=== PATIENT | female | born 1995 | race Caucasian/White ===

== ENCOUNTER 2016-10-05 09:24 | Emergency (ER) | payer OTHER ==
[~2016-10-05 09:24] MED LIST: CONCCAP2; PREN1CHW7 PO
--- NOTE | 2016-10-05 10:07 | PD ---
HPI Chief Complaint lower left abdominal pain Date Seen: Oct 05, 2016 Time Seen: 09:51 (Fidel Ireland MD R1) Travel History International Travel<30 Days: No Contact w/Intl Traveler<30Days: No (Fidel Ireland MD R1) History of Present Illness HPI 21 y/o female at 21/6 weeks presents for left lower abdominal pain. States it has been going on for the last 5 days or so. States it is in the LLQ area. Off and on pain. Worsened by walking. Relieved by laying down. Rates it as 5/10. States it started after her OB pushed on her abdomen at the last appointment. [facility] with [facility]. Denies any vaginal bleeding, loss of fluids, contractions. Endorses movement. No problems during this . Otherwise, doing well, no complaints. Denies any chest pain, SOB, dysuria, leg pain. Para: 0 : 1 (Fidel Ireland MD R1) History Past Medical History Medical History: Denies Significant Hx (Fidel Ireland MD R1) Obstetric History Obstetric History (Fidel Ireland MD R1) Past Surgical History Surgical History: No Previous Surgery (Fidel Ireland MD R1) Family History Family History: Negative (Fidel Ireland MD) Social History Alcohol Use: No Tobacco Use: No Substance Abuse: No (Fidel Ireland MD R1) Allergies-Medications (Allergen,Severity, Reaction): Coded Allergies: No Known Allergies (Verified , 10/05/16) Home Meds Active Scripts Nitrofurantoin Monohydrate Macrocrystals (Macrobid)100 Mg [id number] Mg PO BID #14 CAP Ref 0 Prov:Fidel Ireland MD R1 10/05/16 Vit W/ Ferric Phospha (Vitafol Gummies 3.33-0.333-34.8 mg)1 Chw Chw1 Tab PO DAILY #30 BOTTLE Ref 11 Prov:Kristen Jansen 08/01/16 Reported Medications Vit W/ Fe Fum-Iron Po (Concept Dha 53.5-38-1 mg)1 Cap Cap 08/01/16 Review of Systems General / Constitutional: Weight Gain, No: Fever Eyes: No: Blurred Vision HENT: No: Headaches Cardiovascular: No: Irregular Rhythm, Chest Pain or Discomfort, Palpitations Respiratory: No: Cough, Short of Breath Gastrointestinal: Abdominal Pain, No: Nausea, Vomiting, Diarrhea, Constipation Genitourinary: No: Urgency, Frequency, Dysuria Musculoskeletal: No: Limited ROM, Weakness Skin: No Rash, No Itching Neurologic: No: Weakness, Dizziness Psychiatric: No: Anxiety, Depression (Fidel Ireland MD R1) Physical Exam Narrative GENERAL: Well-nourished, well-developed patient. SKIN: Warm and dry. HEAD: Normocephalic and atraumatic. EYES: No scleral icterus. No injection or drainage. ENT: No nasal drainage noted. Mucous membranes pink. Airway patent. NECK: Supple, trachea midline. No JVD. CARDIOVASCULAR: Regular rate and rhythm without murmurs, gallops, or rubs. RESPIRATORY: Breath sounds equal bilaterally. No accessory muscle use. ABDOMEN/GI: Abdomen soft, non-tender, bowel sounds present, no rebound, no guarding Gravid to 21 weeks size FHT's: Category: 1 Baseline: 145 Reactive: yes Variability: moderate Decels: none EXTREMITIES: No cyanosis or edema. BACK: Nontender without obvious deformity. No CVA tenderness. NEUROLOGICAL: Awake and alert. Motor and sensory grossly within normal limits. Five out of 5 muscle strength in all muscle groups. Normal speech. (Fidel Ireland MD R1) Data Data Vital Signs Reviewed: Yes Orders Vital Signs (Adult) .ON ADMISSION (10/05/16 09:49) ^ Labor Status (10/05/16 09:49) Urinalysis - C+S If Indicated (10/05/16 09:49) ^ Hydration (10/05/16 09:49) (Fidel Ireland MD R1) MDM Medical Record Reviewed: Yes Interpretation(s) 21 y/o female at 21/6 weeks present with LLQ pain. Physical exam reassuring. Category 1 FHT. No contractions. Vitals stable. Plan -Monitor FHT -Hydration -UA -Monitor vitals Narrative Course / MDM FHT reassuring, no contractions UA significant for large leukocyte esterase, negative nitrites, rare bacteria, 2 WBC -Will treat for UTI with Macrobid for 7 days -Discharge home in stable condition, pain most likely related to round ligament ; Discussed returning to ED if worsening symptoms, vaginal bleeding, or fever/ chills, worsening dysuria -Follow-up with OB (Fidel Ireland MD R1) Attending Attestation 21 weeks with round ligament pain. UA is equivocal and Rx sent for possible UTI. FHR+ No UC patient doing well, agrees with plan of care. (Opal Bates MD) Diagnosis Diagnosis: Primary Impression: Round ligament pain Additional Impressions: UTI (urinary tract infection) Qualified Code: N30.00 - Acute cystitis without hematuria 21 weeks gestation of Disposition: DISCHARGE HOME Condition: Stable Scripts Nitrofurantoin Monohydrate Macrocrystals (Macrobid)100 Mg [id number] Mg PO BID #14 CAP Ref 0 Prov:Fidel Ireland MD R1 10/05/16 Patient Instructions: General Instructions, Abdominal Pain in (ED), Urinary Tract Infection in (ED) Fidel Ireland MD R1 Oct 05, 2016 10:07 Opal Bates MD Oct 05, 2016 11:22
[2016-10-05 10:56] LABS: BACTERIA, URINE RARE /hpf; BLOOD, URINE NEG (NEG); COMMENT (UR) CULT NOT INDICATED; CULTURE IF INDICATED CULT NOT INDICATED; GLUCOSE,URINE NEG (NEG); KETONE, URINE NEG (NEG); MUCUS URINE FEW /lpf (OCC); NITRITE,URINE NEG (NEG); PH, URINE 6.5 (5.0-8.5); SQUAMOUS EPITHELIAL CELL URINE 14 /hpf (0-5); URINE COLOR YELLOW (YELLW/STRAW)
[2016-10-05] MEDS ORDERED: MACR100C2 PO (11:07)
== END 2016-10-05 11:21 | disposition home or self-care (01) ==
LOC: HOBED 09:24
DX: O23.42 Unspecified infection of urinary tract in pregnancy, second trimester (principal); R10.2 Pelvic and perineal pain; Z3A.21 21 weeks gestation of pregnancy
CPT/HCPCS: 81001; 99284

== ENCOUNTER 2016-12-07 21:29 | Emergency (ER) | payer OTHER ==
[2016-12-07 22:22] LABS: BLOOD, URINE NEG (NEG); COMMENT (UR) CULT NOT INDICATED; CULTURE IF INDICATED CULT NOT INDICATED; GLUCOSE,URINE NEG (NEG); KETONE, URINE NEG (NEG); MUCUS URINE FEW /lpf (OCC); NITRITE,URINE NEG (NEG); SQUAMOUS EPITHELIAL CELL URINE 2 /hpf (0-5); URINE COLOR YELLOW (YELLW/STRAW)
--- NOTE | 2016-12-07 22:22 | PD ---
HPI Travel History International Travel<30 Days: No Contact w/Intl Traveler<30Days: No Known Affected Area: No History of Present Illness HPI This patient is a 21-year-old 1 para 0 EDC is February 09, 2017 presently at 30 weeks and 6 days she presents with chief complaint of having a slip and fall around 2 PM today. She caught her self on the door and hit her buttocks denies any head injuries did not hit her abdomen no ruptured membranes no vaginal bleeding no other injuries She presents with chief complaint of soreness in her bottom and in her ribs care with [facility] courses been essentially unremarkable has been treated for urinary tract infection Presently has urinary frequency and urgency History Past Medical History Narrative Medical No known drug allergies no major medical problems Obstetric History Obstetric History First Past Surgical History Narrative Surgical Stitches in her head as a child Surgical History: No Previous Surgery Family History Family History: Negative Social History Alcohol Use: No Tobacco Use: No Substance Abuse: No Allergies-Medications (Allergen,Severity, Reaction): Coded Allergies: No Known Allergies (Verified , 12/05/16) Home Meds Active Scripts Vit W/ Ferric Phospha (Vitafol Gummies 3.33-0.333-34.8 mg)1 Chw Chw1 Tab PO DAILY #30 BOTTLE Ref 11 Prov:Kristen Jansen 08/01/16 Reported Medications Vit W/ Fe Fum-Iron Po (Concept Dha 53.5-38-1 mg)1 Cap Cap 08/01/16 Review of Systems Genitourinary: Urgency, Frequency Musculoskeletal: Other (soreness in her buttocks and ribs) Physical Exam Narrative GENERAL: Well-nourished, well-developed patient. Alert oriented 3 and cooperative in no acute distress SKIN: Warm and dry. HEAD: Normocephalic and atraumatic. EYES: No scleral icterus. No injection or drainage. ENT: No nasal drainage noted. Mucous membranes pink. Airway patent. NECK: Supple, trachea midline. No JVD. CARDIOVASCULAR: Regular rate and rhythm without murmurs, gallops, or rubs. RESPIRATORY: Breath sounds equal bilaterally. No accessory muscle use. ABDOMEN/GI: Gravid consistent with stated gestational age of 30 weeks soft nontender no palpable contractions no epigastric or right upper quadrant tenderness Gravid to [-] weeks size 30 weeks Fundal Height: [-] GENITOURINARY: External Genitalia: intact and normal in appearance BUS glands: [-] Cervix: [-] Firm posterior Dilatation: [-] Closed Effacement: [-] 0 Station: [-] Ballotable Presentation: [-] Vertex Membranes: [intact Uterine Contractions: [-]0 FHT's: Category: [-] 1 Baseline: [-] 130 Reactive: [-] + Variability: [-] Moderate Decels: [-] 0 EXTREMITIES: No cyanosis or edema.2+ BACK: Nontender without obvious deformity. No CVA tenderness. NEUROLOGICAL: Awake and alert. Motor and sensory grossly within normal limits. Five out of 5 muscle strength in all muscle groups. Normal speech. Data Data Vital Signs Reviewed: Yes (blood pressures 114/73 pulse 97 she is afebrile) Labs Bedside ultrasound is done she has an anterior grade 2 placenta no abruption no previa the BPD is 3.19 measuring 32 weeks and 6 days total amniotic fluid index amniotic fluid index approximately 15 Positive flexion and tone Reactive tracing Did not wait for breathing MDM Medical Record Reviewed: No Interpretation(s) 21-year-old at 30 weeks and 6 days Not in labor No clinical evidence of abruption Rule out UTI Plan External monitoring By mouth fluid hydration Urinalysis Bedside ultrasound is already been done If indications of urinary tract infection will treat with Keflex 500 mg by mouth 3 times a day for 7 days If no urinary tract infection discharge home on kick counts Rest over the next 24-48 hours Keep her appointment with Maria T chang on the 20 November Tylenol when necessary Warm pad to the buttocks area Diagnosis Diagnosis: Primary Impression: with 30 completed weeks gestation Additional Impressions: Slipping, tripping and stumbling without falling due to stepping from one level to another, sequela Fall from slip, trip, or stumble Qualified Code: W01.0XXA - Fall from slip, trip, or stumble, initial encounter Disposition: 01 DISCHARGE HOME Condition: Stable Brandi De La Cruz MD Dec 07, 2016 22:22
== END 2016-12-07 22:52 | disposition home or self-care (01) ==
LOC: HOBED 21:29
DX: O26.893 Other specified pregnancy related conditions, third trimester (principal); R35.0 Frequency of micturition; R39.15 Urgency of urination; W01.0XXA Fall on same level from slipping, tripping and stumbling without subsequent striking against object, initial encounter; Z3A.30 30 weeks gestation of pregnancy
CPT/HCPCS: 81001; 99282

== ENCOUNTER 2017-02-01 10:53 | Emergency (ER) | payer OTHER ==
--- NOTE | 2017-02-01 11:33 | PD ---
HPI Chief Complaint Low back pain Date Seen: Feb 01, 2017 Travel History International Travel<30 Days: No Contact w/Intl Traveler<30Days: No History of Present Illness HPI Patient is a 21 year old at 38-6/7 weeks gestation who presents today for low back pain. The pain started at around 6 AM. Initially she felt a sharp pain in her lower back and tightening in her stomach that occurred every 10 minutes. This pain has increased in frequency to about every 2 minutes and has increased in intensity. She was checked and her outpatient providers office yesterday and was told that she was a fingertip dilated. She had some spotting after her cervical exam and some spotting this morning. She denies any vaginal discharge, gush or leaking of fluid. She endorses positive movement. care with [facility]. History Past Medical History Medical History: Denies Significant Hx Obstetric History Obstetric History Past Surgical History Surgical History: No Previous Surgery Family History Family History: Negative Social History Alcohol Use: No Tobacco Use: No Substance Abuse: No Allergies-Medications (Allergen,Severity, Reaction): Coded Allergies: No Known Allergies (Verified , 01/31/17) Home Meds Active Scripts Vit W/ Ferric Phospha (Vitafol Gummies 3.33-0.333-34.8 mg) 1 Chw Chw, 1 TAB PO DAILY, #30 BOTTLE 11 Refills Prov:Kristen Jansen 08/01/16 Reported Medications Vit W/ Fe Fum-Iron Po (Concept Dha 53.5-38-1 mg) 1 Cap Cap 08/01/16 Discontinued Scripts Cephalexin (Keflex) 500 Mg Cap, 500 MG PO Q8H for Infection, #21 CAP 0 Refills Prov:Kristen Jansen 01/17/17 Review of Systems Except as stated in HPI: all other systems reviewed are Neg General / Constitutional: No: Fever, Chills Eyes: No: Blurred Vision, Visual changes HENT: No: Headaches Cardiovascular: No: Chest Pain or Discomfort, Palpitations Respiratory: No: Cough, Short of Breath Gastrointestinal: Nausea, Abdominal Pain, No: Vomiting Genitourinary: Pelvic Pain, Vaginal Bleeding, No: Dysuria, Hematuria, Discharge Musculoskeletal: No: Edema Psychiatric: No: Substance Abuse Physical Exam Narrative GENERAL: Well-nourished, well-developed patient. SKIN: Warm and dry. HEAD: Normocephalic and atraumatic. EYES: No scleral icterus. No injection or drainage. ENT: No nasal drainage noted. Mucous membranes pink. Airway patent. NECK: Supple, trachea midline. No JVD. CARDIOVASCULAR: Regular rate and rhythm without murmurs, gallops, or rubs. RESPIRATORY: Breath sounds equal bilaterally. No accessory muscle use. ABDOMEN/GI: Abdomen soft, non-tender, bowel sounds present, no rebound, no guarding Gravid to 38 weeks size GENITOURINARY: External Genitalia: intact and normal in appearance BUS glands: normal Cervix: midposition Dilatation: 1 Effacement: 30 Station: -1 Presentation: vertex Membranes: intact Uterine Contractions: q2-4min FHT's: Category: I Baseline: 145 Reactive: + Variability: moderate Decels: none EXTREMITIES: No cyanosis or edema. BACK: Nontender without obvious deformity. NEUROLOGICAL: Awake and alert. Motor and sensory grossly within normal limits. Normal speech. Data Data Vital Signs Reviewed: Yes Group B Strep: Negative MDM Medical Record Reviewed: Yes Narrative Course / MDM 21 year old at 38-6/7 weeks gestation 1. IUP- Category I tracing, reassuring. 3 minutes of apparent bradycardia down to 100 however it coincides with maternal pulse, reactive strip for 30 minutes after 2. Low Back Pain- Pain consistent with contractions on the monitor. Cervix is 1 /50/-1, likely in early labor. Counseling and education provided regarding signs /symptoms of labor. Patient discharged home and encouraged to continue monitoring contractions/signs/symptoms and return when labor progresses. No cervical change noted after [address] Driscoll Diagnosis Diagnosis: Primary Impression: False labor Disposition: DISCHARGE HOME Condition: Stable Yuko Vasquez MD, R3 Feb 01, 2017 11:33
[2017-03-07] MEDS ORDERED: AUGM500T7 PO (09:06)
[2017-03-17] MEDS ORDERED: LEVO750T3 PO (09:06)
[2017-03-17] MEDS ORDERED: METR500T10 PO (10:00)
== END 2017-02-01 13:58 | disposition home or self-care (01) ==
LOC: HOBED 10:53
DX: O47.1 False labor at or after 37 completed weeks of gestation (principal); Z3A.38 38 weeks gestation of pregnancy
CPT/HCPCS: 99283

== ENCOUNTER 2017-02-05 18:51 | Emergency (ER) | payer OTHER ==
--- NOTE | 2017-02-05 19:41 | PD ---
HPI Chief Complaint Swollen feet, irregular contractions Date Seen: Feb 05, 2017 Time Seen: 19:20 Travel History International Travel<30 Days: No Contact w/Intl Traveler<30Days: No Known Affected Area: No History of Present Illness HPI 21-year-old 1 para 0 with an EDC of 02/09/17 at 39+ weeks gestation who presents with complaint of swollen feet and occasional contractions. No headache visual changes or abdominal pain. She reports normal movement, no bleeding or discharge. History Past Medical History Narrative Medical Anxiety for which she uses an unknown medication administered by inhalation. Past Surgical History Surgical History: No Previous Surgery Family History Family History: Negative Social History Alcohol Use: No Tobacco Use: No Substance Abuse: No Allergies-Medications (Allergen,Severity, Reaction): Coded Allergies: No Known Allergies (Verified , 01/31/17) Home Meds Active Scripts Vit W/ Ferric Phospha (Vitafol Gummies 3.33-0.333-34.8 mg) 1 Chw Chw, 1 TAB PO DAILY, #30 BOTTLE 11 Refills Prov:Kristen Jansen 08/01/16 Reported Medications Vit W/ Fe Fum-Iron Po (Concept Dha 53.5-38-1 mg) 1 Cap Cap 08/01/16 Discontinued Scripts Cephalexin (Keflex) 500 Mg Cap, 500 MG PO Q8H for Infection, #21 CAP 0 Refills Prov:Kristen Jansen 01/17/17 Review of Systems Except as stated in HPI: all other systems reviewed are Neg Physical Exam Narrative GENERAL: Well-nourished, well-developed patient. SKIN: Warm and dry. HEAD: Normocephalic and atraumatic. EYES: No scleral icterus. No injection or drainage. ENT: No nasal drainage noted. Mucous membranes pink. Airway patent. NECK: Supple, trachea midline. No JVD. CARDIOVASCULAR: Regular rate and rhythm without murmurs, gallops, or rubs. RESPIRATORY: Breath sounds equal bilaterally. No accessory muscle use. BREASTS: Bilateral exam showed no masses , no retractions, no nipple discharge. ABDOMEN/GI: Abdomen soft, non-tender, bowel sounds present, no rebound, no guarding Gravid to [-] weeks size Fundal Height: [-] GENITOURINARY: External Genitalia: intact and normal in appearance BUS glands: [Normal-] Cervix: [-] Dilatation: [1-] Effacement: [-40] Station: [-2-] Presentation: [-Vertex] Membranes: [intact] Uterine Contractions: [Mild irregular-] FHT's: Category: [1-] Baseline: [-] Reactive: [-Yes] Variability: [-] Decels: [-] EXTREMITIES: No cyanosis, 1+ lower extremity edema. BACK: Nontender without obvious deformity. No CVA tenderness. NEUROLOGICAL: Awake and alert. Motor and sensory grossly within normal limits. Five out of 5 muscle strength in all muscle groups. Normal speech. Data Data Vital Signs Reviewed: Yes Labs Urine dipstick negative for protein MDM Medical Record Reviewed: Yes Narrative Course / MDM Assessment: 21-year-old primigravida at 39+ weeks gestation with lower extremity edema without evidence of preeclampsia. Plan: PIH precautions were reviewed with the patient. She'll follow up for her routine visit on Monday. Diagnosis Diagnosis: Primary Impression: 39 weeks gestation of Additional Impression: Edema of lower extremity in third trimester, antepartum Disposition: 01 DISCHARGE HOME Condition: Good Patient Instructions: General Instructions, Having Your Baby: The Labor Process (GEN) Additional Instructions: RETURN FOR CONTRACTIONS, LOSS OF FLUID (WATER BREAKING), VAGINAL BLEEDING, OR DECREASED MOVEMENT DRINK 8-10 LARGE GLASSES OF WATER EVERY DAY KEEP SCHEDULED APPOINTMENT WITH YOUR PRODIVER Departure Forms: Tests/Procedures Tutu Miller MD Feb 05, 2017 19:41
[2017-03-07] MEDS ORDERED: AUGM500T7 PO (09:06)
[2017-03-17] MEDS ORDERED: LEVO750T3 PO (09:06)
[2017-03-17] MEDS ORDERED: METR500T10 PO (10:00)
== END 2017-02-05 20:07 | disposition home or self-care (01) ==
LOC: HOBED 18:51
DX: O47.1 False labor at or after 37 completed weeks of gestation (principal); O12.03 Gestational edema, third trimester; Z3A.39 39 weeks gestation of pregnancy
CPT/HCPCS: 59025

== ENCOUNTER 2017-02-14 22:03 | Inpatient (IN) | payer OTHER ==
[~2017-02-14] VITALS: Ht 154.9 cm; Wt 97.5 kg
[~2017-02-14 22:03] MED LIST changes: -AUGM500T7 PO; -IBUP-232 PO; -LEVO750T3 PO; -METR500T10 PO; -OXYC1TAB63 PO; -SENN1TAB PO
--- NOTE | 2017-02-14 22:50 | PD ---
HPI Chief Complaint Contractions with vaginal leaking Date Seen: Feb 14, 2017 Time Seen: 22:47 Travel History International Travel<30 Days: No Contact w/Intl Traveler<30Days: No Known Affected Area: No History of Present Illness HPI 21-year-old who is at 40 weeks and 5 days comes in complaining of contractions. Patient states that she was seen approximately 03 100 this morning and her cervix was a centimeter at that time but also states that she's had some vaginal leaking of fluids since about midnight yesterday. Denies any, cases with her and she is group B strep negative Weeks Gestation: 40 (40.5) Para: 0 : 1 History Past Medical History Medical History: Denies Significant Hx Past Surgical History Surgical History: No Previous Surgery Family History Family History: Negative Social History Alcohol Use: No Tobacco Use: No Substance Abuse: No Allergies-Medications (Allergen,Severity, Reaction): Coded Allergies: No Known Allergies (Verified , 01/31/17) Home Meds Active Scripts Vit W/ Ferric Phospha (Vitafol Gummies 3.33-0.333-34.8 mg) 1 Chw Chw, 1 TAB PO DAILY, #30 BOTTLE 11 Refills Prov:Kristen Jansen 08/01/16 Reported Medications Vit W/ Fe Fum-Iron Po (Concept Dha 53.5-38-1 mg) 1 Cap Cap 08/01/16 Review of Systems Except as stated in HPI: all other systems reviewed are Neg Physical Exam Narrative GENERAL: Well-nourished, well-developed patient. SKIN: Warm and dry. HEAD: Normocephalic and atraumatic. EYES: No scleral icterus. No injection or drainage. ENT: No nasal drainage noted. Mucous membranes pink. Airway patent. NECK: Supple, trachea midline. No JVD. CARDIOVASCULAR: Regular rate and rhythm without murmurs, gallops, or rubs. RESPIRATORY: Breath sounds equal bilaterally. No accessory muscle use. BREASTS: Bilateral exam showed no masses , no retractions, no nipple discharge. ABDOMEN/GI: Abdomen soft, non-tender, bowel sounds present, no rebound, no guarding Gravid to [-40] weeks size Fundal Height: [-] GENITOURINARY: External Genitalia: intact and normal in appearance BUS glands: [-Normal] Cervix: [-Mid position] Dilatation: [5-] Effacement: [-90] Station: [--2] Presentation: [-Vertex] Membranes: Amnisure is negative but there is no palpable by the water, no fluid is noted Uterine Contractions: [-Every 5 minutes] FHT's: Category: [1-] Baseline: [-140] Reactive: [Moderate-] Variability: [-Moderate] Decels: [-Absent] EXTREMITIES: No cyanosis or edema. BACK: Nontender without obvious deformity. No CVA tenderness. NEUROLOGICAL: Awake and alert. Motor and sensory grossly within normal limits. Five out of 5 muscle strength in all muscle groups. Normal speech. Data Data Vital Signs Reviewed: Yes Group B Strep: Negative [facility] Medical Record Reviewed: Yes Plan 21-year-old who is at 40 weeks and 5 days, group B strep negative, in active labor. No amniotic membranes are palpated but amnisure is negative. Plan to admit the patient for labor. Diagnosis Diagnosis: Primary Impression: 40 weeks gestation of Additional Impression: Irregular uterine contractions Renu Galvan MD Feb 14, 2017 22:50
[2017-02-14] MEDS ORDERED: LACTATED RINGER'S 1000 ML INJ 1,000 ML IV PRN (22:51)
[2017-02-14] MEDS ORDERED: LACTATED RINGER'S 1000 ML INJ 1,000 ML IV SCH (22:51)
[2017-02-14] MEDS ORDERED: LIDOCAINE HCL 1% 50 ML VIAL INFIL PRN (23:00)
[2017-02-14] MEDS ORDERED: LIDOCAINE HCL 1% 50 ML VIAL I-DERMAL PRN (23:00)
[2017-02-14] MEDS ORDERED: SODIUM CHLORID 0.9% 500 ML INJ 500 ML IV PRN (23:00)
[2017-02-14] MEDS ORDERED: MINERAL OIL 10 ML VIAL TOPICAL PRN (23:00)
[2017-02-14] MEDS ORDERED: ONDANSETRON HCL 4 MG/2 ML VIAL IV PRN (23:00)
[2017-02-14] MEDS ORDERED: CITRIC ACID-SODIUM CITRATE LIQ 30 ML UDC PO SCH (23:00)
[2017-02-14] MEDS ORDERED: OXYTOCIN 30 UNITS-500ML PREMIX 500 ML IV ONE (23:00)
[2017-02-14] MEDS ORDERED: SODIUM CHLOR 0.9% 1000 ML INJ 1,000 ML IV PRN (23:11)
[2017-02-14] MEDS ORDERED: fentaNYL 2MCG-BUPIV 0.125% INJ 100 ML ONE (23:43)
[2017-02-14 23:49] LABS: AUTOMATED NEUTROPHIL # 9.9 TH/MM3 (1.8-7.7); BASOPHIL % 0.2 % (0.0-2.0); EOSINOPHIL % 0.1 % (0.0-4.0); HEMATOCRIT 32.4 % (35.0-46.0); HEMO FLAGS DIFF FINAL; LYMPH % 15.4 % (9.0-44.0); MEAN CELL VOLUME 76.1 FL (80.0-100.0); MEAN CORPUSCULAR HEMOGLOBIN 25.3 PG (27.0-34.0); MEAN CORPUSCULAR HGB CONC 33.3 % (32.0-36.0); MONO % 8.8 % (0.0-8.0); NEUT % 75.5 % (16.0-70.0); PLATELET COUNT 219 TH/MM3 (150-450); RED BLOOD COUNT 4.26 MIL/MM3 (4.00-5.30); RED CELL DISTRIBUTION WIDTH 14.1 % (11.6-17.2); WHITE BLOOD COUNT 13.1 TH/MM3 (4.0-11.0)
[2017-02-15] VITALS (106 sets, daily range): BP systolic 99–134; BP diastolic 55–90; PULSE 77–125; RESP 9–20; TEMP 97.9–98.5; O2SAT 96–100
[2017-02-15] MEDS ORDERED: LIDOCAINE 2% JELLY 30 ML TUBE ONE (00:48)
[2017-02-15] MEDS ORDERED: NO SYSTEM NARCOTICS PRN (01:00)
[2017-02-15] MEDS ORDERED: ePHEDrine/NS 25 MG/5 ML SYR IV PRN (01:00)
[2017-02-15] MEDS ORDERED: DO NOT ADMINISTER ANTICOAGULANTS PRN (01:00)
[2017-02-15] MEDS: fentaNYL 2MCG-BUPIV 0.125% 100 ML EPIDURAL SCH ×2 (01:14→05:12)
[2017-02-15] MEDS ORDERED: LIDOCAINE 2% JELLY 5 ML TUBE OTHER PRN (01:15)
[2017-02-15] MEDS ORDERED: OXYTOCIN 30 UNITS/NS 500ML PREMIX IV SCH (06:15)
--- NOTE | 2017-02-15 07:26 | HHI.PR ---
[employer] Note Note Patient seen and examined at 0522. Cervix ant lip/100/-2. Patient very painful. Will call anesthesia for bolus then start pitocin for hypotonic labor pattern. FHR 140 baseline, Category 1 tracing, occasional deceleration to 120 noted, moderate variability. Renu Galvan MD Feb 15, 2017 07:26
[2017-02-15] MEDS ORDERED: BUPIVACAINE HCL PF 0.25% 10 ML VIAL ONE (10:47)
[2017-02-15 11:34] LABS: BLOOD GAS BASE EXCESS -3.7 mmol/L (-2-2); BLOOD GAS O2 HGB SATURATION 3 % (90-100); CORD BLOOD GAS HCO3 24 mmol/L (21-29); CORD BLOOD GAS PCO2 76 mmHG (34-78); CORD BLOOD GAS PH 7.13 (7.14-7.42); CORD BLOOD GAS PO2 4 mmHG (3.0-40.0); DRAW SITE CORD BLOOD
[2017-02-15 11:35] LABS: STAT NO
[2017-02-15] MEDS ORDERED: SODIUM CHLORIDE 0.9% FLUSH 10 ML FLUSH IV FLUSH PRN (12:15)
[2017-02-15] MEDS ORDERED: ALUMINUM/MAGNESIUM/SIMETH 30 ML CUP PO PRN (12:15)
[2017-02-15] MEDS ORDERED: ONDANSETRON ODT 4 MG TAB PO PRN (12:15)
[2017-02-15] MEDS ORDERED: OXYTOCIN 30 UNITS-500ML PREMIX 500 ML IV SCH (12:15)
[2017-02-15] MEDS ORDERED: ACETAMINOPHEN 325 MG TAB PO PRN (12:15)
[2017-02-15] MEDS ORDERED: BENZOCAINE 20% TOPICAL SPRAY 60 ML CAN TOPICAL PRN (12:15)
--- NOTE | 2017-02-15 12:17 | PD.OB.DELI ---
Weeks gestation: 40 (40.5) Gest age assessed date: Feb 15, 2017 Gest age assessed time: 10:00 Pt started active labor?: Yes Active labor start date: Feb 14, 2017 Active labor start time: 22:03 Medical induction of labor?: No Artificial rupture of membrane: Yes Artificial ROM date: Feb 15, 2017 Anesthesia: Epidural, Lidocaine pudendal block, Lidocaine local to perineum Episiotomy: Midline Vaginal Delivery: Forceps Presentation: Occiput posterior Nuchal Cord: x1 Delayed cord clamping (45 sec): No : Male Delivery date: Feb 15, 2017 Delivery time: 11:21 One Minute : 2 Five Minute : 8 Weight: 3820 gm Placenta: Spontaneous delivery, Intact Laceration: Episiotomy, Perineal laceration, 4 deg, Involving anal sphincter, Into rectum Repair: Chromic running, Vicryl interrupted, Vicryl running Additional Information outlet forcep delivery from +2 station LOP delivery required 2 separate pulls with 2 separate CTXs moderate traction applied , epis extended to 4 th deg and repaired in layers with vicryl on rectum and IA sphincter and EA sphincter , 2- 0 chromic on vagina and perineum Jose Hwang II, MD Feb 15, 2017 12:17
[2017-02-15] MEDS: oxyCODONE/ACETAMINOPHEN 5 MG/325 MG TAB PO PRN ×2 (13:54→16:35)
[2017-02-15] MEDS ORDERED: CLINDAMYCIN INJ 900 MG in SODIUM CHLORIDE 0.9% INJ 100 ML IV SCH (15:00)
[2017-02-15] MEDS ORDERED: DIPHTH/TETANUS/ACEL PERTUSSIS (BOOSTER) 0.5 ML VIAL/PFS IM ONE (16:00)
[2017-02-15] MEDS ORDERED: MEASLES, MUMPS, RUBELLA VACCINE 0.5 ML VIAL SQ ONE (16:00)
[2017-02-15] MEDS: IBUPROFEN 600 MG TAB PO PRN (16:35)
[2017-02-15] MEDS: WITCH HAZEL 50%/GLYCERIN 12.5% 40 PAD JAR TOPICAL PRN (16:35)
[2017-02-15] MEDS: DIPHENOXYLATE/ATROPINE 2.5 MG/0.025 MG TAB PO SCH (20:32)
[2017-02-15] MEDS ORDERED: ZOLPIDEM TARTRATE 5 MG TAB PO PRN (21:00)
[2017-02-15] MEDS ORDERED: SODIUM CHLORIDE 0.9% FLUSH 10 ML FLUSH IV FLUSH SCH (21:00)
[2017-02-16] MEDS: DIPHENOXYLATE/ATROPINE 2.5 MG/0.025 MG TAB PO SCH ×4 (01:11→18:00)
[2017-02-16] MEDS: IBUPROFEN 600 MG TAB PO PRN ×3 (01:11→22:20)
[2017-02-16] MEDS: oxyCODONE/ACETAMINOPHEN 5 MG/325 MG TAB PO PRN ×5 (01:12→22:15)
[2017-02-16] MEDS: CLINDAMYCIN INJ 900 MG in SODIUM CHLORIDE 0.9% INJ 100 ML IV SCH ×3 (04:30→20:30)
--- NOTE | 2017-02-16 08:16 | HHI.OB ---
Subjective Post Day: 1 Remarks Pt seen and examined this morning. day #1 AFVSS overnight. Pain 5/ 10. Decreased lochia. Denies dysuria. No breast tenderness. She is feeding the baby via formula. Appetite good. No nausea or vomiting. Patient has not yet had a bowel movement.+ flatus Ambulating well. Denies calf pain or shortness of breath. Otherwise, she is doing well this morning and has no other concerns. Objective Vitals/I&O Vital Signs Date Time Temp Pulse Resp B/P (MAP) Pulse Ox O2 Delivery O2 Flow Rate FiO2 02/15/17 20:36 98.5 96 18 02/15/17 20:36 116/75 (89) 02/15/17 12:15 109 127/85 (99) 02/15/17 12:11 18 02/15/17 12:01 115 118/71 (87) 02/15/17 11:53 18 02/15/17 11:52 107 123/79 (94) 02/15/17 09:00 103 123/61 (81) 02/15/17 08:30 98 129/84 (99) Objective Remarks GENERAL: Well-nourished, well-developed patient. CARDIOVASCULAR: Regular rate and rhythm without murmurs, gallops, or rubs. RESPIRATORY: Breath sounds equal bilaterally. No accessory muscle use. ABDOMEN/GI: Abdomen soft, non-tender. Fundus: Firm, non-tender at umbilicus. GENITOURINARY: Light to moderate bleeding. EXTREMITIES: No cyanosis or edema, non-tender, without signs of DVT. Medications and IVs Current Medications Medications (Trade) Dose Ordered Sig/Kierra Route Start Time Stop Time Status Last Admin Lactated Ringer's 1,000 ml @ 125 mls/hr Q8H IV 02/14/17 22:51 02/15/17 00:09 Lactated Ringer's 1,000 ml @ 3,000 mls/hr Q20M PRN IV 02/14/17 22:51 02/15/17 00:10 Sodium Chloride 500 ml @ 1,000 mls/hr ONCE PRN IV 02/14/17 23:00 Sodium Chloride 1,000 ml @ 100 mls/hr Q10H PRN IV 02/14/17 23:11 (Xylocaine 1% Inj (50 ml)) 0.1 ml UNSCH X1 PRN I-DERMAL 02/14/17 23:00 02/17/17 22:59 (Bicitra Liq) 30 ml [employer] PO 02/14/17 23:00 02/18/17 22:59 (Zofran Inj) 4 mg Q6H PRN IV 02/14/17 23:00 02/15/17 13:54 (fentaNYL INJ) 50 mcg Q1H PRN IV PUSH 02/14/17 23:00 (fentaNYL INJ) 100 mcg Q1H PRN IV PUSH 02/14/17 23:00 (Xylocaine 1% Inj (50 ml)) 10 ml UNSCH X1 PRN INFIL 02/14/17 23:00 02/16/17 22:59 (Muri-Lube Oil) 10 ml UNSCH PRN TOPICAL 02/14/17 23:00 Fentanyl/ Bupivacaine HCl 100 ml @ 0 mls/hr TITRATE EPIDURAL 02/15/17 01:00 02/15/17 05:12 Oxytocin 500 ml @ 0 mls/hr TITRATE IV 02/15/17 06:15 02/15/17 06:42 (NS Flush) 2 ml BID IV FLUSH 02/15/17 21:00 02/15/17 21:00 (NS Flush) 2 ml UNSCH PRN IV FLUSH 02/15/17 12:15 (Tylenol) 650 mg Q4H PRN PO 02/15/17 12:15 (Motrin) 600 mg Q6H PRN PO 02/15/17 12:15 02/16/17 01:11 (Percocet 5-325 Mg) 1 tab Q4H PRN PO 02/15/17 12:15 02/15/17 16:35 (Percocet 5-325 Mg) 2 tab Q4H PRN PO 02/15/17 12:15 02/16/17 06:00 (Americaine 20% Top Spr) 1 spray Q4H PRN TOPICAL 02/15/17 12:15 02/15/17 16:35 (Tucks Pads) 1 applic QID PRN TOPICAL 02/15/17 12:15 02/15/17 16:35 (Laverne-Colace) 2 tab Q12H PRN PO 02/15/17 12:15 (Ambien) 5 mg HS PRN PO 02/15/17 21:00 (Mag-Al Plus Susp Liq) 15 ml Q8H PRN PO 02/15/17 12:15 (Zofran Odt) 4 mg Q6H PRN PO 02/15/17 12:15 (Lomotil Tab) 1 tab Q6HR PO 02/15/17 18:00 02/16/17 06:00 Clindamycin Phosphate 900 mg/ Sodium Chloride 106 ml @ 212 mls/hr Q8H IV 02/16/17 04:30 02/16/17 04:30 Assessment/Plan Problem List: (1) (spontaneous vaginal delivery) ICD Codes: O80 - Encounter for full-term uncomplicated delivery Status: Acute Assessment and Plan 21 y/o female who is PPD #1 s/p . -Continue routine care. -Percocet and Motrin PRN pain. -Continue with clindamycin 900 mg IV Q8h for antibiotic coverage. -Encouraged OOB. Advised pelvic rest for 6 wks. -Re: ctrl, she would like to consider her options. -Anticipate discharge tomorrow , 02/17. MD Dao Delatorre Dr., Nally D MD R1 Feb 16, 2017 08:16
[2017-02-16] MEDS: DOCUSATE SODIUM 50 MG/SENNA 8.6 MG TAB PO PRN (13:01)
[2017-02-17] MEDS: DOCUSATE SODIUM 50 MG/SENNA 8.6 MG TAB PO PRN (01:07)
[2017-02-17] MEDS: WITCH HAZEL 50%/GLYCERIN 12.5% 40 PAD JAR TOPICAL PRN (01:07)
--- NOTE | 2017-02-17 08:05 | HHI.DCPOC ---
Discharge Care Plan Diagnosis: (1) (spontaneous vaginal delivery) Report Symptoms to Your Doctor -Temperature above 100.5 degrees -Redness, of incision or excessive or foul smelling drainage -Unusual pain or calf pain -Increased vaginal bleeding -Painful or difficulty urinating -Feelings of extreme sadness or anxiety after 2 weeks Goals to Promote Your Health * To prevent worsening of your condition and complications * To maintain your health at the optimal level Directions to Meet Your Goals Take your medications as prescribed Follow your dietary instruction Follow activity as directed Ensure plenty of rest for recovery Drink fluids for hydration Keep your appointments as scheduled Take your immunizations and boosters as scheduled If your symptoms worsen call your PCP, if no PCP go to Urgent Care Center or Emergency Room Smoking is Dangerous to Your Health. Avoid second hand smoke Call the 24-hour crisis hotline for domestic abuse at Rainer Bingham MD R2 Feb 17, 2017 08:05
[2017-02-17] MEDS: IBUPROFEN 600 MG TAB PO PRN ×3 (08:30→20:30)
[2017-02-17] MEDS: oxyCODONE/ACETAMINOPHEN 5 MG/325 MG TAB PO PRN ×3 (08:31→20:30)
[2017-02-17] MEDS: DIPHENOXYLATE/ATROPINE 2.5 MG/0.025 MG TAB PO SCH ×3 (12:00→18:00)
--- NOTE | 2017-02-17 13:38 | HHI.OB ---
Subjective Post Day: 2 Remarks Pt seen and examined this morning. day # 2. Patient hypotensive to 90s/60s, but remains asymptomatic. Fourth degree laceration incision not draining, but tender to touch. Decreased lochia. Denies dysuria. No breast tenderness. She is feeding the baby via bottle. Appetite good. No nausea or vomiting. Patient has not yet had a bowel movement or endorses bowel gas. Ambulating well. Denies calf pain or shortness of breath. Otherwise, she is doing well this morning and has no other concerns. Objective Objective Remarks GENERAL: Well-nourished, well-developed patient. CARDIOVASCULAR: Regular rate and rhythm without murmurs, gallops, or rubs. RESPIRATORY: Breath sounds equal bilaterally. No accessory muscle use. ABDOMEN/GI: Abdomen soft, non-tender. Fundus: Firm, non-tender at umbilicus. GENITOURINARY: Light to moderate bleeding. Fourth degree vaginal laceration: Incision, CDI. Tender to palpation. No bleeding appreciated. No vaginal discharge. EXTREMITIES: No cyanosis or edema, non-tender, without signs of DVT. Medications and IVs Current Medications Medications (Trade) Dose Ordered Sig/Kierra Route Start Time Stop Time Status Last Admin Lactated Ringer's 1,000 ml @ 125 mls/hr Q8H IV 02/14/17 22:51 02/15/17 00:09 Lactated Ringer's 1,000 ml @ 3,000 mls/hr Q20M PRN IV 02/14/17 22:51 02/15/17 00:10 Sodium Chloride 500 ml @ 1,000 mls/hr ONCE PRN IV 02/14/17 23:00 Sodium Chloride 1,000 ml @ 100 mls/hr Q10H PRN IV 02/14/17 23:11 (Xylocaine 1% Inj (50 ml)) 0.1 ml UNSCH X1 PRN I-DERMAL 02/14/17 23:00 02/17/17 22:59 (Bicitra Liq) 30 ml E[employer] CONSULTANT PO 02/14/17 23:00 02/18/17 22:59 (Zofran Inj) 4 mg Q6H PRN IV 02/14/17 23:00 02/15/17 13:54 (fentaNYL INJ) 50 mcg Q1H PRN IV PUSH 02/14/17 23:00 (fentaNYL INJ) 100 mcg Q1H PRN IV PUSH 02/14/17 23:00 (Muri-Lube Oil) 10 ml UNSCH PRN TOPICAL 02/14/17 23:00 Fentanyl/ Bupivacaine HCl 100 ml @ 0 mls/hr TITRATE EPIDURAL 02/15/17 01:00 02/15/17 05:12 Oxytocin 500 ml @ 0 mls/hr TITRATE IV 02/15/17 06:15 02/15/17 06:42 (NS Flush) 2 ml BID IV FLUSH 02/15/17 21:00 02/15/17 21:00 (NS Flush) 2 ml UNSCH PRN IV FLUSH 02/15/17 12:15 (Tylenol) 650 mg Q4H PRN PO 02/15/17 12:15 (Motrin) 600 mg Q6H PRN PO 02/15/17 12:15 02/17/17 08:30 (Percocet 5-325 Mg) 1 tab Q4H PRN PO 02/15/17 12:15 02/15/17 16:35 (Percocet 5-325 Mg) 2 tab Q4H PRN PO 02/15/17 12:15 02/17/17 08:31 (Americaine 20% Top Spr) 1 spray Q4H PRN TOPICAL 02/15/17 12:15 02/15/17 16:35 (Tucks Pads) 1 applic QID PRN TOPICAL 02/15/17 12:15 02/17/17 01:07 (Laverne-Colace) 2 tab Q12H PRN PO 02/15/17 12:15 02/17/17 01:07 (Ambien) 5 mg HS PRN PO 02/15/17 21:00 (Mag-Al Plus Susp Liq) 15 ml Q8H PRN PO 02/15/17 12:15 (Zofran Odt) 4 mg Q6H PRN PO 02/15/17 12:15 02/16/17 09:28 (Lomotil Tab) 1 tab Q6HR PO 02/15/17 18:00 02/16/17 13:00 Clindamycin Phosphate 900 mg/ Sodium Chloride 106 ml @ 212 mls/hr Q8H IV 02/16/17 04:30 02/16/17 20:30 Assessment/Plan Problem List: (1) (spontaneous vaginal delivery) ICD Codes: O80 - Encounter for full-term uncomplicated delivery Status: Acute Assessment and Plan 21 y/o female who is PPD #2 s/p . -Continue routine care. -Percocet and Motrin PRN pain. -Continue with clindamycin 900 mg IV Q8h for antibiotic coverage. -Repeat H/H ordered -Coccyx and Sacrum xrays ordered -Encouraged OOB. Advised pelvic rest for 6 wks. -Re: ctrl, she would like to consider her options. -Anticipate discharge tomorrow , 02/18, pending clinical course . funmilayo Driscoll MD Discharge Planning Likely tomorrow pending clinical course Rainer Bingham MD R2 Feb 17, 2017 13:38
[2017-02-17] MEDS: CLINDAMYCIN INJ 900 MG in SODIUM CHLORIDE 0.9% INJ 100 ML IV SCH (14:43)
--- NOTE | 2017-02-17 15:01 | RADRPT ---
EXAM DATE/TIME: 02/17/2017 13:38 [facility] COMPARISON: No previous studies available for comparison. INDICATIONS : Post forcep delivery. Patient complains of coccyx pain. MEDICAL HISTORY : None. SURGICAL HISTORY : None. ENCOUNTER: Initial ACUITY: 3 days PAIN SCORE: 8/10 LOCATION: Pelvis FINDINGS: No definite fractures, or dislocations are identified. No definite lytic or sclerotic lesion is seen . The joint spaces are well maintained. CONCLUSION: Unremarkable study. Desire Goodwin MD on February 17, 2017 at 14:59 Board Certified Radiologist. This report was verified electronically.
--- NOTE | 2017-02-17 15:02 | RADRPT ---
EXAM DATE/TIME: 02/17/2017 13:40 [facility] COMPARISON: No previous studies available for comparison. INDICATIONS : Post forcep delivery. Patient complains of coccyx pain. MEDICAL HISTORY : None. SURGICAL HISTORY : None. ENCOUNTER: Initial ACUITY: 3 days PAIN SCORE: 8/10 LOCATION: Sacrum and coccyx FINDINGS: No definite fractures, or dislocations are identified. No definite lytic or sclerotic lesion is seen . The joint spaces are well maintained. CONCLUSION: Unremarkable study. Desire Goodwin MD on February 17, 2017 at 15:00 Board Certified Radiologist. This report was verified electronically.
[2017-02-17 17:45] LABS: HEMATOCRIT 23.4 % (35.0-46.0); MEAN CELL VOLUME 77.5 FL (80.0-100.0); MEAN CORPUSCULAR HEMOGLOBIN 25.8 PG (27.0-34.0); MEAN CORPUSCULAR HGB CONC 33.3 % (32.0-36.0); PLATELET COUNT 229 TH/MM3 (150-450); RED BLOOD COUNT 3.02 MIL/MM3 (4.00-5.30); REVIEW FLAG FINAL; WHITE BLOOD COUNT 11.2 TH/MM3 (4.0-11.0)
[2017-02-18] MEDS: DIPHENOXYLATE/ATROPINE 2.5 MG/0.025 MG TAB PO SCH ×2 (06:00)
[2017-02-18] MEDS: CLINDAMYCIN INJ 900 MG in SODIUM CHLORIDE 0.9% INJ 100 ML IV SCH ×3 (06:00)
--- NOTE | 2017-02-18 06:38 | HHI.OB ---
Subjective Post Day: 3 Remarks Pt seen and examined this morning. day # 3 AFVSS overnight. Laceration repair not draining. Decreased lochia. Denies dysuria. No breast tenderness. She is feeding the baby via bottle. Appetite good. No nausea or vomiting. Patient has not yet had a bowel movement, but does endorse bowel gas. Ambulating well. Denies calf pain or shortness of breath. Otherwise, she is doing well this morning and has no other concerns. (Rainer Bingham MD R2) Remarks Patient seen and evaluated with resident under direct supervision, agree with assessment and plan. (Tutu Miller MD) Objective Objective Remarks GENERAL: Well-nourished, well-developed patient. CARDIOVASCULAR: Regular rate and rhythm without murmurs, gallops, or rubs. RESPIRATORY: Breath sounds equal bilaterally. No accessory muscle use. ABDOMEN/GI: Abdomen soft, non-tender. Fundus: Firm, non-tender at umbilicus. GENITOURINARY: Light to moderate bleeding. Fourth degree vaginal laceration: Incision, CDI. Tender to palpation. No bleeding appreciated. No vaginal discharge. EXTREMITIES: No cyanosis or edema, non-tender, without signs of DVT. Medications and IVs Current Medications Medications (Trade) Dose Ordered Sig/Kierra Route Start Time Stop Time Status Last Admin Lactated Ringer's 1,000 ml @ 125 mls/hr Q8H IV 02/14/17 22:51 02/15/17 00:09 Lactated Ringer's 1,000 ml @ 3,000 mls/hr Q20M PRN IV 02/14/17 22:51 02/15/17 00:10 Sodium Chloride 500 ml @ 1,000 mls/hr ONCE PRN IV 02/14/17 23:00 Sodium Chloride 1,000 ml @ 100 mls/hr Q10H PRN IV 02/14/17 23:11 (Bicitra Liq) 30 ml [employer] STITCHER PO 02/14/17 23:00 02/18/17 22:59 (Zofran Inj) 4 mg Q6H PRN IV 02/14/17 23:00 02/15/17 13:54 (fentaNYL INJ) 50 mcg Q1H PRN IV PUSH 02/14/17 23:00 (fentaNYL INJ) 100 mcg Q1H PRN IV PUSH 02/14/17 23:00 (Muri-Lube Oil) 10 ml UNSCH PRN TOPICAL 02/14/17 23:00 Fentanyl/ Bupivacaine HCl 100 ml @ 0 mls/hr TITRATE EPIDURAL 02/15/17 01:00 02/15/17 05:12 Oxytocin 500 ml @ 0 mls/hr TITRATE IV 02/15/17 06:15 02/15/17 06:42 (NS Flush) 2 ml BID IV FLUSH 02/15/17 21:00 02/15/17 21:00 (NS Flush) 2 ml UNSCH PRN IV FLUSH 02/15/17 12:15 (Tylenol) 650 mg Q4H PRN PO 02/15/17 12:15 (Motrin) 600 mg Q6H PRN PO 02/15/17 12:15 02/17/17 20:30 (Percocet 5-325 Mg) 1 tab Q4H PRN PO 02/15/17 12:15 02/15/17 16:35 (Percocet 5-325 Mg) 2 tab Q4H PRN PO 02/15/17 12:15 02/17/17 20:30 (Americaine 20% Top Spr) 1 spray Q4H PRN TOPICAL 02/15/17 12:15 02/15/17 16:35 (Tucks Pads) 1 applic QID PRN TOPICAL 02/15/17 12:15 02/17/17 01:07 (Laverne-Colace) 2 tab Q12H PRN PO 02/15/17 12:15 02/17/17 01:07 (Ambien) 5 mg HS PRN PO 02/15/17 21:00 (Mag-Al Plus Susp Liq) 15 ml Q8H PRN PO 02/15/17 12:15 (Zofran Odt) 4 mg Q6H PRN PO 02/15/17 12:15 02/16/17 09:28 (Lomotil Tab) 1 tab Q6HR PO 02/15/17 18:00 02/16/17 13:00 Clindamycin Phosphate 900 mg/ Sodium Chloride 106 ml @ 212 mls/hr Q8H IV 02/16/17 04:30 02/18/17 06:00 (Rainer Bingham MD R2) Assessment/Plan Problem List: (1) (spontaneous vaginal delivery) ICD Codes: O80 - Encounter for full-term uncomplicated delivery Status: Acute Assessment and Plan 21 y/o female who is PPD #3 s/p . -Continue routine care. -Percocet and Motrin PRN pain. -Continue with clindamycin 900 mg IV Q8h for antibiotic coverage. -Repeat H/H: 7.8/23.4, patient remains asymptomatic -Coccyx and Sacrum xrays: Unremarkable -Encouraged OOB. Advised pelvic rest for 6 wks. -Re: ctrl, she would like to consider her options. -Anticipate discharge today, 02/[address] Paul MD Discharge Planning Likely today pending clinical course (Rainer Bingham MD R2) Rainer Bingham MD R2 Feb 18, 2017 06:38 Tutu Miller MD Feb 19, 2017 10:44
[2017-02-18] MEDS: oxyCODONE/ACETAMINOPHEN 5 MG/325 MG TAB PO PRN (07:32)
[2017-02-18] MEDS: DOCUSATE SODIUM 50 MG/SENNA 8.6 MG TAB PO PRN (07:32)
[2017-02-18] MEDS: IBUPROFEN 600 MG TAB PO PRN (07:32)
[2017-02-18] MEDS ORDERED: SENN1TAB PO (08:58)
[2017-02-18] MEDS ORDERED: IBUP-232 PO (08:58)
[2017-02-18] MEDS ORDERED: OXYC1TAB63 PO (08:58)
[2017-03-07] MEDS ORDERED: AUGM500T7 PO (09:06)
[2017-03-17] MEDS ORDERED: LEVO750T3 PO (09:06)
[2017-03-17] MEDS ORDERED: METR500T10 PO (10:00)
== END 2017-02-18 12:32 | disposition home or self-care (01) | DRG 775 ==
LOC: HOBED 22:03 → H2EA 22:53 → H1EA 02-15 15:33
PROVIDERS: ADMIT Obstetrics & Gynecology Obstetrics; ATTEND Obstetrics & Gynecology Obstetrics
PROC: 0W8NXZZ Division of Female Perineum, External Approach (ICD-10-PCS; principal; 2017-02-15)
PROC: 10D07Z4 Extraction of Products of Conception, Mid Forceps, Via Natural or Artificial Opening (ICD-10-PCS; 2017-02-15)
PROC: 0DQP0ZZ Repair Rectum, Open Approach (ICD-10-PCS; 2017-02-15)
PROC: 3E0R3CZ (ICD-10-PCS; 2017-02-15)
PROC: 00HU33Z Insertion of Infusion Device into Spinal Canal, Percutaneous Approach (ICD-10-PCS; 2017-02-15)
DX: O70.3 Fourth degree perineal laceration during delivery (principal); Z37.0 Single live birth; O69.81X0 Labor and delivery complicated by cord around neck, without compression, not applicable or unspecified; Z3A.40 40 weeks gestation of pregnancy
CPT/HCPCS: 72170; 72220; 82805; 84112; 85025; 85027; 86592; 86900; 86901; 99283; J2405; J2590; J7120

== ENCOUNTER → 2017-02-14 | Emergency (ER) | payer OTHER ==
[~2017-02-14] MED LIST changes: +AUGM500T7 PO; +IBUP-232 PO; +LEVO750T3 PO; +METR500T10 PO; +OXYC1TAB63 PO; +SENN1TAB PO
--- NOTE | 2017-02-14 03:52 | PD ---
HPI Chief Complaint Possibly leaking fluid Date Seen: Feb 14, 2017 Time Seen: 03:45 Travel History International Travel<30 Days: No Contact w/Intl Traveler<30Days: No Known Affected Area: No History of Present Illness HPI 21-year-old white female at 40 weeks thanks maybe leaking fluid. Amnio sure is negative this morning, was no bleeding, she is joshua about every 5 -6 minutes, heart rate tracing is reactive Weeks Gestation: 40 Para: 0 : 1 History Social History Alcohol Use: No Tobacco Use: No Substance Abuse: No Allergies-Medications (Allergen,Severity, Reaction): Coded Allergies: No Known Allergies (Verified , 01/31/17) Home Meds Active Scripts Vit W/ Ferric Phospha (Vitafol Gummies 3.33-0.333-34.8 mg) 1 Chw Chw, 1 TAB PO DAILY, #30 BOTTLE 11 Refills Prov:Kristen Jansen 08/01/16 Reported Medications Vit W/ Fe Fum-Iron Po (Concept Dha 53.5-38-1 mg) 1 Cap Cap 08/01/16 Review of Systems General / Constitutional: No: Fever, Weight Gain, Chills, Other Eyes: No: Diploplia, Blurred Vision, Visual changes, Pain, Photophobia HENT: No: Headaches, Vertigo, Lightheadedness Cardiovascular: No: Irregular Rhythm, Chest Pain or Discomfort, Palpitations, Tachycardia, Syncope, Varicosities, Edema, Cyanosis Respiratory: No: Cough, Short of Breath, Other Gastrointestinal: No: Nausea, Vomiting, Diarrhea Genitourinary: No: Decreased Urinary Output, Oliguria Musculoskeletal: No: Limited ROM, Weakness, Cramping, Edema, Pain Skin: No Rash, No Itching, No Dryness, No Lumps, No Change in Pigmentation, No Change in Nails, No Alopecia, No Lesions Neurologic: No: Weakness, Dizziness, Syncope, Focal Abnormalities, Coordination Problem, Headache, Slurred Speech, Seizures Psychiatric: No: Depression, Suicidal Ideations, Homicidal Ideation Endocrine: No: Heat Intolerance, Cold Intolerance, Polydipsia, Polyuria, Other Physical Exam Narrative GENERAL: Well-nourished, well-developed patient. SKIN: Warm and dry. HEAD: Normocephalic and atraumatic. EYES: No scleral icterus. No injection or drainage. ENT: No nasal drainage noted. Mucous membranes pink. Airway patent. NECK: Supple, trachea midline. No JVD. CARDIOVASCULAR: Regular rate and rhythm without murmurs, gallops, or rubs. RESPIRATORY: Breath sounds equal bilaterally. No accessory muscle use. BREASTS: Bilateral exam showed no masses , no retractions, no nipple discharge. ABDOMEN/GI: Abdomen soft, non-tender, bowel sounds present, no rebound, no guarding Gravid to [40-] weeks size Fundal Height: [40-] GENITOURINARY: External Genitalia: intact and normal in appearance BUS glands: [-] Cervix: [-1] Dilatation: [1] Effacement: [-50] Station: [-2] Presentation: [vtx-] Membranes: [intact amnio sure negative] Uterine Contractions: [-]q 5 min FHT's: Category: [1-] Baseline: [-133] Reactive: [-yes] Variability: [mod-] Decels: [none-] EXTREMITIES: No cyanosis or edema. BACK: Nontender without obvious deformity. No CVA tenderness. NEUROLOGICAL: Awake and alert. Motor and sensory grossly within normal limits. Five out of 5 muscle strength in all muscle groups. Normal speech. Data Data Labs Amnio sure negative MDM Interpretation(s) 21-year-old white female at 40 weeks with the possibly leakage of fluid. Amnio sure is negative tonight. heart rate tracing is reactive she is joshua every 5-6 minutes and some of them hurt most of them don't. Patient is scheduled for induction in approximately 48 hours due to the postdates Plan The patient to go home tonight return as scheduled for induction or sooner if labor ensues Diagnosis Diagnosis: Primary Impression: No leakage of amniotic fluid into vagina Additional Impression: Post-term , 40-42 weeks of gestation Disposition: DISCHARGE HOME Condition: Stable Jose Hwang II, MD Feb 14, 2017 03:52
== END | disposition home or self-care (01) ==
LOC: HOBED 03:03
DX: O42.92 Full-term premature rupture of membranes, unspecified as to length of time between rupture and onset of labor (principal); Z3A.40 40 weeks gestation of pregnancy
CPT/HCPCS: 84112; 99283

== ENCOUNTER 2017-06-27 14:53 | Emergency (ER) | payer OTHER ==
[~2017-06-27] VITALS: Ht 154.9 cm; Wt 80.1 kg
[~2017-06-27 14:53] MED LIST changes: +AUGM500T7 PO; -CONCCAP2; +LEVO750T3 PO; +METR1TAB76 PO; -PREN1CHW7 PO
[2017-06-27 14:58] VITALS: BP 156/92; PULSE 93; RESP 16; TEMP 97.7; O2SAT 97
--- NOTE | 2017-06-27 15:12 | PD ---
HPI Chief Complaint: GI Complaint Time Seen by Provider: 15:01 Travel History International Travel<30 days: No Contact w/Intl Traveler<30days: No Traveled to known affect area: No History of Present Illness HPI 22 y/o female presents with 4 episodes of nonbloody emesis and one episode of diarrhea. She denies any abdominal pain, fever or other concurrent complaints. She denies any current specific sick contacts. She denies specific modifying factors. She states her last menstrual cycle was about a month ago. She states she took a test at home that was negative. PFSH Past Medical History Hx Anticoagulant Therapy: No ADHD: Yes Anxiety: Yes Cardiovascular Problems: No Chemotherapy: No Cerebrovascular Accident: No Diabetes: No Diminished Hearing: No Psychiatric: Yes (ADHD) Respiratory: No Immunizations Current: No ?: Unknown Past Surgical History Hysterectomy: No Social History Alcohol Use: No Tobacco Use: No Substance Use: No Allergies-Medications (Allergen,Severity, Reaction): Coded Allergies: coconut (Verified Allergy, Mild, 03/31/17) Reported Meds & Prescriptions Reported Meds & Active Scripts Active Zofran Odt (Ondansetron Odt) 4 Mg Tab 4 Mg SL Q6HR PRN Review of Systems Except as stated in HPI: all other systems reviewed are Neg Physical Exam Narrative GENERAL: Well-nourished, well-developed patient. well appearing SKIN: Warm and dry. HEAD: Normocephalic and atraumatic. EYES: No injection or drainage. ENT: No nasal drainage noted. NECK: Supple, trachea midline. CARDIOVASCULAR: Regular rate and rhythm RESPIRATORY: no increased effort. No accessory muscle use. GASTROINTESTINAL: Abdomen soft, non tender, nondistended. EXTREMITIES: No edema. NEUROLOGICAL: Awake and alert. Motor and sensory grossly within normal limits. Normal speech. Data Data Last Documented VS Vital Signs Date Time Temp Pulse Resp B/P (MAP) Pulse Ox O2 Delivery O2 Flow Rate FiO2 06/27/17 16:24 81 16 143/86 (105) 99 06/27/17 14:58 97.7 Orders Orders Ed Urine Pregnancytest Poc (06/27/17 15:01) Ondansetron Odt (Zofran Odt) (06/27/17 15:30) Oral Rehydration (06/27/17 15:18) Ed Discharge Order (1/16/18 16:14) MDM Medical Decision Making Medical Screen Exam Complete: Yes Emergency Medical Condition: Yes Medical Record Reviewed: Yes (pmh confirmed) Differential Diagnosis Gastroenteritis, , dehydration Narrative Course We will check test and dose with Zofran reevaluate test is negative, patient advised that test can be falsely negative very early in . She agrees to repeat test as outpatient in a couple of days until limits Zofran to only when necessary. She understands congenital risk if her test turns positive with Zofran use. Patient denies any new complaints and states that they are feeling better, all questions answered. Patient knows that follow up is incumbent on them and to return to the emergency room immediately if new or worsening symptoms develop. Patient given strict return precautions, vitals reviewed and are normal, agrees to further workup as an outpatient. No emesis here, tolerating liquids Diagnosis Primary Impression: Vomiting and diarrhea Patient Instructions: General Instructions Additional Instructions: Return as needed, Zofran as needed, follow with primary care physician this week Med/Other Pt SpecificInfo: Prescription(s) given Scripts Ondansetron Odt (Zofran Odt) 4 Mg Tab 4 MG SL Q6HR Y for Nausea/Vomiting, #10 TAB 0 Refills Prov: Kaykay Arriaga MD 06/27/17 Disposition: 01 DISCHARGE HOME Condition: Stable Kaykay Arriaga MD Jun 27, 2017 15:12
[2017-06-27] MEDS ORDERED: ONDANSETRON ODT 4 MG TAB PO ONE (15:30)
[2017-06-27] MEDS ORDERED: ZOFR4TAB3 SL (16:15)
[2017-06-27 16:24] VITALS: BP 143/86
== END 2017-06-27 16:49 | disposition home or self-care (01) ==
LOC: PHED 14:53
DX: R19.7 Diarrhea, unspecified (principal); R11.10 Vomiting, unspecified; F90.9 Attention-deficit hyperactivity disorder, unspecified type; F41.9 Anxiety disorder, unspecified
CPT/HCPCS: 84703; 99283

== ENCOUNTER 2017-09-05 17:59 | Emergency (ER) | payer OTHER ==
[~2017-09-05] VITALS: Ht 154.9 cm; Wt 82.0 kg
[~2017-09-05 17:59] MED LIST changes: -AUGM500T7 PO; -LEVO750T3 PO; -METR1TAB76 PO; +ZOFR4TAB3 SL
[2017-09-05 18:11] VITALS: BP 122/82; PULSE 107; RESP 16; TEMP 98.7; O2SAT 98
[2017-09-05 19:03] LABS: BILIRUBIN, URINE NEG (NEG); BLOOD, URINE NEG (NEG); GLUCOSE,URINE NEG (NEG); KETONE, URINE NEG (NEG); NITRITE,URINE NEG (NEG); PH, URINE 5.5 (5.0-8.5); URINE COLOR YELLOW (YELLW/STRAW); URINE LEUKOCYTE ESTERASE TRACE (NEG)
[2017-09-05 19:17] LABS: BACTERIA, URINE OCC /hpf; SQUAMOUS EPITHELIAL CELL URINE 0-5 /hpf (0-5)
--- NOTE | 2017-09-05 19:29 | PD ---
HPI Chief Complaint: Related Problem Time Seen by Provider: 19:15 Travel History International Travel<30 days: No Contact w/Intl Traveler<30days: No Traveled to known affect area: No History of Present Illness HPI The patient is a 22-year-old female, G2, P1, A0 at states she is 4 weeks . She has right pelvic pain. She states she wants to make sure she can hold the baby because she had a level for tear which was repaired when she delivered in February last year. The obstetricians at that time told her everything was fine. She wants to get it checked. She denies any vaginal bleeding. Her pain level is a 3/10 and slight crampy pain. She has not seen an spinning bath patroller yet. She denies any nausea. PFSH Past Medical History Hx Anticoagulant Therapy: No ADHD: Yes Anxiety: Yes Cardiovascular Problems: No Chemotherapy: No Cerebrovascular Accident: No Diabetes: No Diminished Hearing: No Psychiatric: Yes (ADHD) Respiratory: No Immunizations Current: No Tetanus Vaccination: Unknown Influenza Vaccination: No ?: Past Surgical History Surgical History: No Previous Surgery Hysterectomy: No Social History Alcohol Use: No Tobacco Use: No Substance Use: No Allergies-Medications (Allergen,Severity, Reaction): Coded Allergies: coconut (Verified Allergy, Mild, 09/05/17) Reported Meds & Prescriptions Reported Meds & Active Scripts Active Review of Systems Except as stated in HPI: all other systems reviewed are Neg Physical Exam Narrative GENERAL: The patient is alert, oriented 3 in slight apparent distress with her right pelvic discomfort. SKIN: Focused skin assessment warm/dry. HEAD: Atraumatic. Normocephalic. EYES: Pupils equal and round. No scleral icterus. No injection or drainage. ENT: No nasal bleeding or discharge. Mucous membranes pink and moist. NECK: Trachea midline. No JVD. CARDIOVASCULAR: Regular rate and rhythm. No murmur appreciated. RESPIRATORY: No accessory muscle use. Clear to auscultation. Breath sounds equal bilaterally. GASTROINTESTINAL: Abdomen soft, with slight tenderness in the right pelvis to direct palpation, nondistended. Hepatic and splenic margins not palpable. No guarding or rebound is present. MUSCULOSKELETAL: No obvious deformities. No clubbing. No cyanosis. No edema. NEUROLOGICAL: Awake and alert. No obvious cranial nerve deficits. Motor grossly within normal limits. Normal speech. PSYCHIATRIC: Appropriate mood and affect; insight and judgment normal. GENITOURINARY: Normal external genitalia without lesions or erythema. Vaginal vault without blood and there is superior white, [id number] drainage. Cervical os was closed with clear drainage. No cervical motion tenderness. Uterus nontender and nonenlarged. The left adnexa nontender without masses. The right adnexa is tender without masses. Data Data Last Documented VS Vital Signs Date Time Temp Pulse Resp B/P (MAP) Pulse Ox O2 Delivery O2 Flow Rate FiO2 09/05/17 18:11 98.7 107 16 122/82 (95) 98 Orders Orders Beta Hcg (Quant/Titer) (09/05/17 18:22) Ed Urine Pregnancytest Poc (09/05/17 18:22) Urinalysis - C+S If Indicated (09/05/17 18:22) Iv Access Insert/Monitor (09/05/17 18:22) Complete Blood Count With Diff (09/05/17 19:24) Basic Metabolic Panel (Bmp) (09/05/17 19:24) Us Pelvis (Ques Preg/Ectopic) (09/05/17 ) Labs Laboratory Tests Test 09/05/17 18:25 09/05/17 18:30 Urine Collection Type CLEAN CATCH Urine Color YELLOW Urine Turbidity CLEAR Urine pH 5.5 Urine Specific [place] GREATER/EQUAL 1.030 Urine Protein NEG mg/dL Urine Glucose (UA) NEG mg/dL Urine Ketones NEG mg/dL Urine Occult Blood NEG Urine Nitrite NEG Urine Bilirubin NEG Urine Urobilinogen 0.2 MG/DL Urine Leukocyte Esterase TRACE Urine WBC 3-5 /hpf Urine Squamous Epithelial Cells 0-5 /hpf Urine Bacteria OCC /hpf Microscopic Urinalysis Comment CULT NOT INDICATED Human Chorionic Gonadotropin, Quant 345 MIU/ML [facility] Medical Decision Making Medical Screen Exam Complete: Yes Emergency Medical Condition: Yes Medical Record Reviewed: Yes Interpretation(s) The ultrasound is only 345. The urine shows specific gravity greater than 1.030 with trace leukocyte cultures not indicated. Differential Diagnosis Ectopic , ovarian cyst, torsion ovary-unlikely, ligament pain, appendicitis, colitis Narrative Course The patient does have some slight pelvic pain at this time but the beta titer indicates a level well below 1000. At this time an ultrasound will not be very meaningful with respect to the . Plan: The patient will follow up with an spinning bath patroller next week. She can take plain Tylenol for pain. Impression: Right pelvic pain Diagnosis Primary Impression: Pelvic pain during Additional Instructions: As we discussed, follow-up with an spinning bath patroller next week, if the pain gets worse she should return to the emergency department. Disposition: 01 DISCHARGE HOME Condition: Stable Jaron Reardon MD Sep 05, 2017 19:29
[2017-09-05 19:45] LABS: AUTOMATED NEUTROPHIL # 6.3 TH/MM3 (1.8-7.7); BASOPHIL # 0.2 TH/MM3 (0-0.2); BASOPHIL % 2.4 % (0.0-2.0); EOSINOPHIL # 0.1 TH/MM3 (0-0.4); EOSINOPHIL % 1.2 % (0.0-4.0); HEMATOCRIT 34.2 % (35.0-46.0); HEMOGLOBIN 11.1 GM/DL (11.6-15.3); LYMPH % 24.4 % (9.0-44.0); LYMPHOCYTE # 2.4 TH/MM3 (1.0-4.8); MEAN CELL VOLUME 70.1 FL (80.0-100.0); MEAN CORPUSCULAR HEMOGLOBIN 22.9 PG (27.0-34.0); MEAN CORPUSCULAR HGB CONC 32.6 % (32.0-36.0); MEAN PLATELET VOLUME 8.3 FL (7.0-11.0); MONO % 7.7 % (0.0-8.0); MONOCYTE # 0.8 TH/MM3 (0-0.9); NEUT % 64.3 % (16.0-70.0); PLATELET COUNT 328 TH/MM3 (150-450); RED BLOOD COUNT 4.87 MIL/MM3 (4.00-5.30); RED CELL DISTRIBUTION WIDTH 15.3 % (11.6-17.2); WHITE BLOOD COUNT 9.8 TH/MM3 (4.0-11.0)
[2017-09-05 19:48] LABS: BICARBONATE 25.3 MEQ/L (21.0-32.0)
[2017-09-05 19:51] LABS: CREATININE 0.57 MG/DL (0.50-1.00)
[2017-09-05 20:22] LABS: OVALOCYTES 1+ (NORMAL)
== END 2017-09-05 20:04 | disposition home or self-care (01) ==
LOC: PHED 17:59
DX: O26.891 Other specified pregnancy related conditions, first trimester (principal); R10.2 Pelvic and perineal pain; O99.341 Other mental disorders complicating pregnancy, first trimester; F90.9 Attention-deficit hyperactivity disorder, unspecified type; F41.9 Anxiety disorder, unspecified; Z3A.01 Less than 8 weeks gestation of pregnancy
CPT/HCPCS: 80048; 81001; 84702; 84703; 85025; 99284

== ENCOUNTER 2018-04-30 05:29 | Inpatient (IN) ==
--- NOTE | 2018-04-29 21:27 | P.HPOB ---
History of Present Illness Service: obstetrics Primary Care Physician: NOT REQUIRED Chief Complaint: scheduled primary , history of 4th degree laceration History of Present Illness: 22 yo with EDC 05/07/18, plan for admission 04/30/18 at 39 weeks for primary due to history of complicated recent vaginal delivery of first child on 02/15/17, 4th degree vaginal laceration and NICU stay for infant. That infant weighed 8#7oz. Current was unplanned but desired. Patient was counseled on risks of repeat vaginal trauma especially given short interval and pt opts for primary . Has been followed in office for for 13 visits starting at 7 weeks. Complication of chlamydia in first trimester s/p treatment and negative test of cure. 27# weight gain this . Female fetus, average gestational age on 22 week sono. At office visit 04/25/18 patient c/o pelvic pressure but no regular contractions, no vaginal bleeding, no leakage of fluid, endorsed good movement. Pain 2/10 low pelvis. Weeks Gestation:: 39 Para: 1 : 2 - Inpatient Certification I certify that the inpatient services were ordered in accordance with Medicare regulations governing the order. This includes certification that hospital inpatient services are reasonable and necessary and in the case of services not specified as inpatient-only under 42 CFR 419.22(n), that they are appropriately provided as inpatient services in accordance to with the 2-midnight benchmark under 43 CFR 412.3(e) Estimated Total Length of Stay (Days): 4 Plans for Post Hospital Care: Home Review of Systems All other systems reviewed negative except as stated in HPI PMFSH - Medical / Surgical Hx Neg / Unobtainable Medical Problems Denied: Yes Surgical History: No Previous Surgery - Medical History Medical History: Medical History (Last Reviewed 03/25/18 @ 07:22 by America Stevenson MD) No significant medical problems - Family History Family History: Family History (Last Updated 04/29/18 @ 21:24 by Judy Rodriguez MD) Other No significant family history - Social History I have reviewed the patient's Social History: Yes - Tobacco History Second Hand Smoke Exposure: No Tobacco Use In Past 30 Days: No Smoking Status: Never smoker - Alcohol History How Often Do You Have a Drink Containing Alcohol: Never - Substance Use History Substance History: No History of Abuse - Travel History History of Recent Travel: No Recent Travel in the [facility] Within the Last 8 Weeks: No Recent Travel Out of the Country Within the Last 8 Weeks: No Medications and Allergies Allergies Allergy/AdvReac Type Severity Reaction Status Date / Time coconut Allergy Mild Hives Verified 03/25/18 07:04 Exam - Constitutional no acute distress - Routine HEENT Exam Head: Present: normocephalic, atraumatic Eye: Present: EOMI, PERRL ENT: Present: mucous membranes moist - Routine Neck Exam Present: supple, full ROM - Routine Chest/Breast/Axilla Exam Chest wall: Absent: tenderness, mass - Routine Respiratory Exam Absent: accessory muscle use, respiratory distress - Routine Cardiovascular Exam Present: RRR. Absent: bradycardia - Routine Abdominal Exam Comments: gravid c/w dates - Routine Extremities Exam Absent: cyanosis, tenderness - Routine Skin Exam Present: intact. Absent: cyanosis - Routine Neurological Exam Present: alert, oriented X3 Results - Labs Group B Strep: Negative Caprini VTE Risk Assessment Caprini VTE Risk Assessment: No/Low Risk (score <= 1) VTE Pharmacological Exception Reason: Epidural catheter Caprini Risk Assessment Model: Point Value = 1 Point Value = 2 Point Value = 3 Point Value = 5 Age 41-60 Minor surgery BMI > 25 kg/m2 Swollen legs Varicose veins or History of unexplained or recurrent spontaneous Oral contraceptives or hormone replacement Sepsis (< 1 month) Serious lung disease, including pneumonia (< 1 month) Abnormal pulmonary function Acute myocardial infarction Congestive heart failure (< 1 month) History of inflammatory bowel disease Medical patient at bed rest Age 61-74 Arthroscopic surgery Major open surgery (> 45 min) Laparoscopic surgery (> 45 min) Malignancy Confined to bed (> 72 hours) Immobilizing plaster cast Central venous access Age >= 75 History of VTE Family history of VTE Factor V Leiden Prothrombin [id number] Lupus anticoagulant Anticardiolipin antibodies Elevated serum homocysteine Heparin-induced thrombocytopenia Other congenital or acquired thrombophilia Stroke (< 1 month) Elective arthroplasty Hip, pelvis, or leg fracture Acute spinal cord injury (< 1 month) Prophylaxis Regimen: Total Risk Factor Score Risk Level Prophylaxis Regimen 0-1 Low Early ambulation 2 Moderate Order ONE of the following: *Sequential Compression Device (SCD) *Heparin 5000 units SQ BID 3-4 Higher Order ONE of the following medications: *Heparin 5000 units SQ TID *Enoxaparin/Lovenox 40 mg SQ daily (WT < 150 kg, CrCl > 30 mL/min) *Enoxaparin/Lovenox 30 mg SQ daily (WT < 150 kg, CrCl > 10-29 mL/min) *Enoxaparin/Lovenox 30 mg SQ BID (WT < 150 kg, CrCl > 30 mL/min) AND/OR *Sequential Compression Device (SCD) 5 or more Highest Order ONE of the following medications: *Heparin 5000 units SQ TID (Preferred with Epidurals) *Enoxaparin/Lovenox 40 mg SQ daily (WT < 150 kg, CrCl > 30 mL/min) *Enoxaparin/Lovenox 30 mg SQ daily (WT < 150 kg, CrCl > 10-29 mL/min) *Enoxaparin/Lovenox 30 mg SQ BID (WT < 150 kg, CrCl > 30 mL/min) AND *Sequential Compression Device (SCD) Assessment and Plan - Diagnosis (1) 39 weeks gestation of Code(s): Z3A.39 - 39 weeks gestation of Status: Acute (2) History of fourth degree perineal laceration Code(s): Z87.59 - Personal history of other complications of , childbirth and the puerperium Status: Chronic - Plan 22 yo with hernandez female IUP at 39 weeks on 04/30/18, EDC 05/07/18 by LMP c/w 13 week sono, presents for admission for scheduled due to history of fourth degree laceration with recent delivery 02/15/2017. 1) primary for hx of recent 4th degree perineal laceration: pt aware of risks, benefits, and alternatives to primary , consents signed, all questions answered 2) GBS negative 3) hx of chlamydia in first trimester: s/p treatment and negative test of cure 4) status: vertex female, posterior placenta, EFW 8-8.5# 5) dispo: not meeting criteria, anticipate d/c to home POD#2-3 Discharge Plannin-3d postop
[2018-04-30] MEDS ORDERED: Citric Acid/Sodium Citrate Liq 30 ML UDC PO SCH (06:30)
[2018-04-30 06:50] LABS: Baso % (Auto) 0.3 % (0.0-2.0); Eos % (Auto) 0.2 % (0.0-4.0); Hematocrit 30.1 % (35.0-46.0); Hemoglobin 9.9 gm/dL (11.6-15.3); Lymph # (Auto) 2.1 th/mm3 (1.0-4.8); Lymph % (Auto) 23.1 % (9.0-44.0); Mean Corpuscular Hemoglobin 22.3 pg (27.0-34.0); Mean Corpuscular Volume 67.6 fL (80.0-100.0); Mean Platelet Volume 8.5 fL (7.0-11.0); Mono # (Auto) 0.7 th/mm3 (0.0-0.9); Mono % (Auto) 7.8 % (0.0-8.0); Neut # (Auto) 6.4 th/mm3 (1.8-7.7); Neut % (Auto) 68.6 % (16.0-70.0); Platelet Count 271 th/mm3 (150-450); Red Blood Count 4.46 mil/mm3 (4.00-5.30); White Blood Count 9.3 th/mm3 (4.0-11.0)
[2018-04-30] MEDS ORDERED: ceFAZolin 2 GM Premix Inj 2 GM/50 ML PIGGYBACK IV.SIG SCH (07:00)
[2018-04-30] MEDS ORDERED: Morphine Sulfate PF Inj 5 MG/10 ML Ampul ONE (07:11)
[2018-04-30 07:17] LABS: Amphetamine Screen,Urine Neg (Neg); Barbiturate Screen,Urine Neg (Neg); Cannabinoid Screen,Urine Neg (Neg); Cocaine Screen,Urine Neg (Neg)
[2018-04-30 07:23] LABS: Opiate Screen,Urine Neg (Neg)
[2018-04-30 07:51] LABS: Bacteria,Urine Moderate /hpf; Bilirubin,Urine Negative (Negative); Clarity,Urine Cloudy (Clear); Color,Urine Yellow (Yellw/Straw); Glucose,Urine (UA) Negative (Negative); Leukocyte Esterase,Urine Large (Negative); Mucus,Urine Moderate /lpf (Occasional); Nitrite,Urine Negative (Negative); Specific Gravity,Urine 1.025 (1.002-1.035); Squamous Epithelial Cell,Urine 24 /hpf (0-5)
[2018-04-30] MEDS ORDERED: Acetaminophen 325 MG Tablet PO PRN (08:15)
[2018-04-30] MEDS ORDERED: Simethicone 80 MG Chew Tablet PO PRN (08:15)
--- NOTE | 2018-04-30 08:21 | P.OBDELI ---
Procedure Note Performed by: Judy Rodriguez MD Procedure: Primary Low Transverse Section Indication for Delivery: Other (history of 4th degree vaginal laceration with G1 on 02/2017) Informed Consent Obtained: For anesthesia, For procedure Confirmed Correct: Patient, Procedure, Site, Time-out taken Anesthesia: Spinal Medication Prior to Procedure: As documented in eMAR Monitoring During Procedure: Blood pressure monitoring, chief operator synthesis, doppler, Pulse oximetry Urinary Catheter: Inserted using sterile technique, To dependent drainage Sterile Preparation: Duraprep, In usual fashion, With drapes to expose affected area Position: Supine with wedge to right side - Operative Features Skin Incision: Pfannenstiel Uterine Incision: Low transverse w/knife / scissors Membranes Ruptured: Artificially, Amount of liquid (moderate), Appearance of fluid (clear) Presentation: Vertex Status of : Viable, Cord blood, Nursery present Placenta Delivered: Intact Medications: Antibiotics (ancef 2g IV preop) Estimated blood loss (mL): 400 Procedure Tolerated: Well Maternal Condition: Stable Baby Condition: Stable Procedure in Detail: see dictated op note; vacuum-assisted delivery - Infant: Female Female A Infant Delivery Date: 04/30/18 Weight: 3.742 kg Delivery of Infant: Assisted (vacuum assisted)
[2018-04-30] MEDS ORDERED: Oxytocin 30 Units/500ml Premix 30 UNITS/500 ML BAG IV.SIG ONE (09:00)
--- NOTE | 2018-04-30 09:32 | MP ---
cc: Judy Rodriguez MD DATE OF OPERATION: 04/30/2018 DATE OF SURGERY: 04/30/2018 PREOPERATIVE DIAGNOSES: 1. Ileberman intrauterine at 39 weeks. 2. History of fourth-degree vaginal laceration with last . 3. Short interpregnancy interval. POSTOPERATIVE DIAGNOSIS: 1. Lieberman intrauterine at 39 weeks. 2. History of fourth-degree vaginal laceration with last . 3. Short interpregnancy interval. 4. Postoperative day number zero. INDICATIONS: The patient is a 22-year-old 2, now para 2-0-0-2, who has a history of a recent vaginal in February 2017 with her first baby weighing 8 pounds 7 ounces with complication of a fourth-degree perineal laceration and a difficult delivery with infant requiring NICU stay. The patient had some trauma from that delivery and when with this , it was discussed the risks, benefits and alternatives of a repeat vaginal versus a primary . The patient opted for primary . PROCEDURE PERFORMED: Primary low transverse delivery with vacuum assistance. SURGEON: Judy Rodriguez MD. TYPE OF ANESTHESIA: Spinal. ESTIMATED BLOOD LOSS: 400 mL. IV FLUID REPLACEMENT: 2 liters. URINE OUTPUT: 100 mL clear urine draining in the Biggs bag at the end of the procedure. COMPLICATIONS: None. COUNTS: Sponge, lap, instrument and needle correct x2 at the conclusion of the procedure. PROPHYLAXIS: Ancef 2g IV was given preoperatively and SCDs were on and functioning throughout entire case. INTRAOPERATIVE FINDINGS: A vigorous viable female infant weighing 8 pounds 4 ounces. Clear amniotic fluid, normal appearing bilateral fallopian tubes and ovaries. 's of 8 and 9. SPECIMENS: None. PROCEDURE IN DETAIL: After reviewing the informed consent, the patient was taken to the operating suite, where a timeout was performed to identify the patient, planned procedure, and any known allergies to drugs or drug products. The patient was then placed sitting up on the operating table and spinal anesthesia was administered without difficulty and found to be adequate. The patient was then laid in dorsal supine position with a bump under her right side. Abdomen and perineum were prepped and draped in normal sterile fashion with Biggs catheter placed using sterile technique. Attention was turned abdominally where a Pfannenstiel type skin incision was made with a scalpel, carried down to the underlying layer of fascia with the Bovie. The incision was extended laterally with sharp dissection using Ott scissors. Superior and inferior edges of the fascial incision was then elevated with Bhavna clamps. Rectus muscles were dissected off sharply with Ott scissors, both superiorly and inferiorly. Kochers were then removed. Rectus muscles were in the midline. Peritoneum was identified and entered bluntly with surgeon's index finger. Incision was extended bluntly. Bladder blade was placed. A bladder flap was not made. Low transverse uterine incision was made with a scalpel. This was extended with sharp dissection using bandage scissors. The 's head was then grasped and elevated out of the incision. There was a slight dystocia due to the tightness of the patient's rectus muscles, a vacuum was called for, was applied and with a single pull 's head was successfully delivered, with gentle maneuvering, the rest of the 's body easily delivered. Infant was immediately crying upon delivery. Delayed cord clamping of 45 seconds was performed. The cord was then doubly clamped and cut. was handed off to the awaiting nursery staff. Cord blood sample was taken. Placenta was delivered spontaneously with gentle fundal massage and cord traction. The uterus was then exteriorized, cleared of all clots and debris with sterile moist lab sponges. The hysterotomy was repaired in a double-layer, first a running locked layer, then an imbricating layer with #1 chromic. The posterior cul-de-sac was then irrigated. Uterus was returned to the abdomen. Additional irrigation with suction was performed. A layer of Interceed was placed over the repaired hysterotomy to act as an adhesive barrier. The peritoneum was then closed in a running layer with 2-0 chromic. The fascia was closed in a running layer with #1 Vicryl. Additional irrigation with suction was performed. A series of interrupted sutures using 2-0 chromic was used to close the subcutaneous fat layer. The skin was then cleaned and dried and closed in a subcuticular fashion with 3-0 Monocryl. Steri-Strips were placed as was a standard dressing. The procedure concluded at this point. The patient tolerated the procedure well without complication. DISPOSITION: Patient's estimated length of stay is 2-3 postoperative days. is nursery status. MD Renato Gilliland , 08:18 AM , 08:25 AM ANGELIA
[2018-04-30] MEDS ORDERED: Oxytocin 30 Units/500ml Premix 30 UNITS/500 ML BAG IV.SIG PRN (13:15)
[2018-04-30] MEDS ORDERED: Zolpidem Tartrate 5 MG Tablet PO PRN (21:00)
[2018-04-30] MEDS: Senna/Docusate Sodium 8.6/50 MG Tablet PO SCH (21:02)
[2018-05-01 05:46] LABS: Baso % (Auto) 0.2 % (0.0-2.0); Eos % (Auto) 0.1 % (0.0-4.0); Hematocrit 29.1 % (35.0-46.0); Hemoglobin 9.6 gm/dL (11.6-15.3); Lymph # (Auto) 3.1 th/mm3 (1.0-4.8); Lymph % (Auto) 23.5 % (9.0-44.0); Mean Corpuscular Hemoglobin 22.4 pg (27.0-34.0); Mean Corpuscular Volume 67.9 fL (80.0-100.0); Mean Platelet Volume 8.3 fL (7.0-11.0); Mono # (Auto) 1.1 th/mm3 (0.0-0.9); Mono % (Auto) 8.1 % (0.0-8.0); Neut % (Auto) 68.1 % (16.0-70.0); Platelet Count 263 th/mm3 (150-450); Red Blood Count 4.28 mil/mm3 (4.00-5.30); Red Cell Distribution Width 16.1 % (11.6-17.2); White Blood Count 13.2 th/mm3 (4.0-11.0)
--- NOTE | 2018-05-01 08:22 | P.PNOB ---
Subjective Post op day: 1 Interval history: POD#1, S/p LTCD, stable, doing well. Objective Vital Signs/I&O: Vital Signs 04/30/18 08:20 04/30/18 08:34 04/30/18 08:50 Temperature 97.6 F Pulse Rate 84 79 80 Respiratory Rate 18 18 18 Blood Pressure 115/58 L 118/59 L 109/60 04/30/18 09:05 04/30/18 10:15 04/30/18 14:30 Temperature 97.7 F 98.7 F 97.6 F Pulse Rate 76 60 63 Respiratory Rate 16 Blood Pressure 112/64 129/78 114/61 04/30/18 17:30 04/30/18 20:00 04/30/18 23:55 Temperature 98.8 F 98.2 F 98.2 F Pulse Rate 68 68 74 Respiratory Rate 18 Blood Pressure 116/70 108/62 104/86 05/01/18 04:00 05/01/18 08:00 Temperature 98.1 F 97.8 F Pulse Rate 77 74 Respiratory Rate 18 Blood Pressure 113/65 101/65 Intake & Output 04/30/18 05/01/18 05/01/18 18:59 06:59 18:59 Intake Total 1100 / 1100 Balance 1100 / 1100 Intake: IV 1100 / 1100 LR 1000 mL Inj 1,000 ML @ 150 1000 / 1000 mls/hr IV.CONT .Q6H40M [facility] Rx#: [id number] Ofirmev Inj 1,000 mg In 100 ml 100 / 100 @ 400 mls/hr IV.SIG Q8H [facility] Rx# :[id number] Result Diagrams: 05/01/18 05:22 Objective Remarks: GENERAL: Well-nourished, well-developed patient. CARDIOVASCULAR: Regular rate and rhythm without murmurs, gallops, or rubs. RESPIRATORY: Breath sounds equal bilaterally. No accessory muscle use. ABDOMEN/GI: Abdomen soft, non-tender, bowel sounds present. Incision: Clean, dry and intact. Fundus: Firm, non-tender at umbilicus. GENITOURINARY: Light to moderate bleeding. EXTREMITIES: No cyanosis or edema, non-tender, without signs of DVT. Medications and IVs: Active Medications Acetaminophen (Tylenol) 650 mg PO Q6H PRN PRN Reason: PAIN SCALE 1 TO 2 Citric Acid/Sodium Citrate (Sodium Citrate/Citric Acid Liq) 30 ml PO TIME STUDY STATISTICIAN [facility] Stop: 05/04/18 06:29 Diphenhydramine HCl (Benadryl Inj) 25 mg IV.PUSH Q8H PRN PRN Reason: ITCHING Last Admin: 04/30/18 12:05 Dose: 25 mg Diphtheria/Pertussis/Tetanus Vacc (Boostrix Vaccine Inj) 0.5 ml IM .ONCE ONE Stop: 05/01/18 16:01 Lactated Ringer's (Lr 1000 Ml Inj) 1,000 mls @ 150 mls/hr IV.CONT .Q6H40M [facility] Last Admin: 05/01/18 05:23 Dose: Not Given Oxytocin (Pitocin 30 Units/Ns 500 Ml Premix) 30 units in 500 mls @ 100 mls/hr IV.SIG UNSCH PRN PRN Reason: Heavy bleeding Lactated Ringer's (Lr 1000 Ml Inj) 1,000 mls @ 100 mls/hr IV.CONT .Q10H [facility] Stop: 05/01/18 09:14 Last Admin: 05/01/18 05:23 Dose: Not Given Ibuprofen (Motrin) 800 mg PO Q8H PRN PRN Reason: cramping Last Admin: 05/01/18 05:28 Dose: 800 mg Ketorolac Tromethamine (Toradol Inj) 30 mg IM Q6H PRN PRN Reason: SEE LABEL COMMENTS Last Admin: 04/30/18 11:11 Dose: 30 mg Measles/Mumps/Rubella Vaccine Live (M-M-R Ii Vaccine Inj) 0.5 ml SQ .ONCE ONE Stop: 05/01/18 16:01 Miscellaneous Information ([facility]) 1 each OTHER UNSCH PRN PRN Reason: SEE LABEL COMMENTS Stop: 05/01/18 10:04 Ondansetron HCl (Zofran Inj) 4 mg IV.PUSH Q6H PRN PRN Reason: NAUSEA OR VOMITING Oxycodone/Acetaminophen (Percocet 5/325 Mg) 1 tab PO Q4H PRN PRN Reason: PAIN SCALE 3 TO 5 Last Admin: 05/01/18 05:29 Dose: 1 tab Oxycodone/Acetaminophen (Percocet 5/325 Mg) 2 tab PO Q4H PRN PRN Reason: PAIN SCALE 6 TO 10 Promethazine HCl (Phenergan Inj) 25 mg IM Q6H PRN PRN Reason: NAUSEA OR VOMITING Last Admin: 04/30/18 12:06 Dose: 25 mg Senna/Docusate Sodium (Laverne-Colace) 1 tab PO Q12H [facility] Last Admin: 04/30/18 21:02 Dose: 1 tab Simethicone (Mylicon Chew) 80 mg PO QID PRN PRN Reason: FLATULENCE Sodium Chloride (Ns Flush) 2 ml IV.FLUSH BID [facility] Last Admin: 04/30/18 21:00 Dose: Not Given Sodium Chloride (Ns Flush) 2 ml IV.FLUSH PRN PRN PRN Reason: FLUSH AFTER USING IV ACCESS Zolpidem Tartrate (Ambien) 5 mg PO HS PRN PRN Reason: INSOMNIA Assessment and Plan - Diagnosis (1) 39 weeks gestation of Code(s): Z3A.39 - 39 weeks gestation of Status: Acute (2) History of fourth degree perineal laceration Code(s): Z87.59 - Personal history of other complications of , childbirth and the puerperium Status: Chronic - Plan 22 yo with hernandez female IUP at 39 weeks on 04/30/18, EDC 05/07/18 by LMP c/w 13 week sono, presents for admission for scheduled due to history of fourth degree laceration with recent delivery 02/15/2017. 1) primary for hx of recent 4th degree perineal laceration: pt aware of risks, benefits, and alternatives to primary , consents signed, all questions answered 2) GBS negative 3) hx of chlamydia in first trimester: s/p treatment and negative test of cure 4) status: vertex female, posterior placenta, EFW 8-8.5# 5) dispo: not meeting criteria, anticipate d/c to home POD#2-3. 05/01/18 POD#1 Patient stable, advance activity, anticipate discharge POD#2-3 Discharge Plannin-3d postop
--- NOTE | 2018-05-01 09:15 | P.OBGPN ---
Queried PDMP and reviewed report
[2018-05-01] MEDS: Senna/Docusate Sodium 8.6/50 MG Tablet PO SCH ×2 (09:58→21:12)
[2018-05-01] MEDS ORDERED: Measles/Mumps/Rubella Vaccine Inj 0.5 ML Vial SQ ONE (16:00)
[2018-05-01] MEDS ORDERED: Diphtheria/Tetanus/Pertussis Vaccine Inj 0.5 ML Syringe IM ONE (16:00)
--- NOTE | 2018-05-02 07:02 | P.PNOB ---
Subjective Post op day: 2 Interval history: Doing well, ambulating without difficulty, voiding spontaneously, pain controlled, vaginal bleeding less than menses. Objective Vital Signs/I&O: Vital Signs 05/01/18 08:00 05/01/18 20:00 Temperature 97.8 F 98.0 F Pulse Rate 74 81 Respiratory Rate 18 18 Blood Pressure 101/65 129/83 Result Diagrams: 05/01/18 05:22 Objective Remarks: GENERAL: Well-nourished, well-developed patient. CARDIOVASCULAR: Regular rate and rhythm without murmurs, gallops, or rubs. RESPIRATORY: Breath sounds equal bilaterally. No accessory muscle use. ABDOMEN/GI: Abdomen soft, non-tender, bowel sounds present. Incision: Clean, dry and intact. Fundus: Firm, non-tender at umbilicus. GENITOURINARY: Light to moderate bleeding. EXTREMITIES: No cyanosis or edema, non-tender, without signs of DVT. Medications and IVs: Active Medications Acetaminophen (Tylenol) 650 mg PO Q6H PRN PRN Reason: PAIN SCALE 1 TO 2 Citric Acid/Sodium Citrate (Sodium Citrate/Citric Acid Liq) 30 ml PO EMERGENCY VEHICLE TECHNICIAN [facility] Stop: 05/04/18 06:29 Diphenhydramine HCl (Benadryl Inj) 25 mg IV.PUSH Q8H PRN PRN Reason: ITCHING Last Admin: 04/30/18 12:05 Dose: 25 mg Lactated Ringer's (Lr 1000 Ml Inj) 1,000 mls @ 150 mls/hr IV.CONT .Q6H40M [facility] Last Admin: 05/02/18 02:02 Dose: Not Given Oxytocin (Pitocin 30 Units/Ns 500 Ml Premix) 30 units in 500 mls @ 100 mls/hr IV.SIG UNSCH PRN PRN Reason: Heavy bleeding Ibuprofen (Motrin) 800 mg PO Q8H PRN PRN Reason: cramping Last Admin: 05/02/18 03:22 Dose: 800 mg Ketorolac Tromethamine (Toradol Inj) 30 mg IM Q6H PRN PRN Reason: SEE LABEL COMMENTS Last Admin: 04/30/18 11:11 Dose: 30 mg Ondansetron HCl (Zofran Inj) 4 mg IV.PUSH Q6H PRN PRN Reason: NAUSEA OR VOMITING Oxycodone/Acetaminophen (Percocet 5/325 Mg) 1 tab PO Q4H PRN PRN Reason: PAIN SCALE 3 TO 5 Last Admin: 05/01/18 21:12 Dose: 1 tab Oxycodone/Acetaminophen (Percocet 5/325 Mg) 2 tab PO Q4H PRN PRN Reason: PAIN SCALE 6 TO 10 Last Admin: 05/02/18 03:23 Dose: 2 tab Promethazine HCl (Phenergan Inj) 25 mg IM Q6H PRN PRN Reason: NAUSEA OR VOMITING Last Admin: 04/30/18 12:06 Dose: 25 mg Senna/Docusate Sodium (Laverne-Colace) 1 tab PO Q12H [place] Last Admin: 05/01/18 21:12 Dose: 1 tab Simethicone (Mylicon Chew) 80 mg PO QID PRN PRN Reason: FLATULENCE Last Admin: 05/02/18 03:22 Dose: 80 mg Sodium Chloride (Ns Flush) 2 ml IV.FLUSH BID [place] Last Admin: 05/02/18 02:01 Dose: Not Given Sodium Chloride (Ns Flush) 2 ml IV.FLUSH PRN PRN PRN Reason: FLUSH AFTER USING IV ACCESS Zolpidem Tartrate (Ambien) 5 mg PO HS PRN PRN Reason: INSOMNIA Assessment and Plan - Diagnosis (1) 39 weeks gestation of Code(s): Z3A.39 - 39 weeks gestation of Status: Acute (2) History of fourth degree perineal laceration Code(s): Z87.59 - Personal history of other complications of , childbirth and the puerperium Status: Chronic - Plan 22-year-old status post primary low transverse at 39 weeks secondary to history of fourth degree laceration. 1. Postoperative day #2: Afebrile, vital signs stable, continue routine post operative and care, discussed expectations, precautions and follow-up. D/c home tomorrow -Female
[2018-05-02 09:25] VITALS: BP 118/74; PULSE 92; RESP 20; TEMP 97.8
[2018-05-02] MEDS: Senna/Docusate Sodium 8.6/50 MG Tablet PO SCH (09:32)
== END 2018-05-02 18:00 | disposition home or self-care (01) ==
LOC: H2E 05:29 → H1EA 09:24
PROVIDERS: ADMIT Obstetrics & Gynecology